=== PATIENT | male | born 1965 | race Caucasian/White ===

== ENCOUNTER 2020-10-23 10:54 | Emergency (ER) | payer SELFPAY ==
[~2020-10-23] VITALS: Ht 170.2 cm; Wt 79.4 kg
[2020-10-23 10:59] VITALS: BP 145/70
--- NOTE | 2020-10-23 10:59 | NUR ---
PT BIBA TO BED 11
--- NOTE | 2020-10-23 11:14 | NUR ---
PT LEFT FROM FACILITY OUT OF THE BACK DOORS. AMBULATED WITH STEADY GAIT. SECURITY CALLED AND PT WAS SEEN WALKING OUT TOWARDS [place]. SECURITY NOTIFITED.
--- NOTE | 2020-10-23 11:14 | NUR ---
PATIENT LEFT WITHOUT BEING SEEN BY DR. VELÁSQUEZ. NO FURTHER CARE PROVIDED FOR PATIENT.
== END 2020-10-23 11:14 | disposition left against medical advice (07) ==
LOC: MED 10:54
DX: R41.82 Altered mental status, unspecified (principal); Z53.21 Procedure and treatment not carried out due to patient leaving prior to being seen by health care provider